=== PATIENT | female | born 1965 | race Caucasian/White ===

== ENCOUNTER 2021-06-05 12:49 | Outpatient (REF) | payer OTHER, SELFPAY ==
--- NOTE | ~2021-06-05 | XR_ITS ---
EXAMINATION: XR ANKLE, RIGHT CLINICAL INFORMATION: Pain COMPARISON: None TECHNIQUE: Four views of the right ankle. FINDINGS: No fracture or dislocation. The ankle mortise is congruent. Ossific density at the tip of the medial malleolus likely from prior injury. Also ossific density near the tip of the distal fibula likely from prior injury. There is lateral soft tissue swelling. Achilles heel spur. No ankle joint effusion. XR/XR ankle RT min 3V IMPRESSION: Lateral soft tissue swelling without acute osseous abnormality. Evidence of prior injury at the medial and lateral malleoli.
== END 2021-06-05 12:50 | disposition home or self-care (01) ==
LOC: HO.HOSX 12:49
PROVIDERS: Visit Provider Physician Assistant
DX: S82.61XA Displaced fracture of lateral malleolus of right fibula, initial encounter for closed fracture (principal); S82.51XA Displaced fracture of medial malleolus of right tibia, initial encounter for closed fracture
CPT/HCPCS: 73610; 99202